=== PATIENT | male | born 1980 | race Caucasian/White ===

== ENCOUNTER → 2016-05-24 | Outpatient (CLI) | payer MEDICAID | LOC: MW.RT 20:57 | DX: G47.30 Sleep apnea, unspecified (principal) | CPT/HCPCS: 95811 ==

== ENCOUNTER 2016-11-11 08:16 | Emergency (ER) | payer SELFPAY ==
[2016-11-11] MEDS ORDERED: cefTRIAXone 1,000 MG in Lidocaine 1% 4 ML IM ONE (08:36)
--- NOTE | 2016-11-11 08:40 | EDM.PDOC ---
ED HPI GENERAL MEDICAL PROBLEM - General Chief Complaint: General Stated Complaint: TOOTHACHE Time Seen by Provider: 11/11/16 08:37 Source of Information: Reports: Patient - History of Present Illness INITIAL COMMENTS - FREE TEXT/NARRATIVE: HISTORY AND PHYSICAL: History of present illness: Patient has pain and swelling 8 out of 10 right rear molar consistent with early abscess formation, patient has failed [id number] symptomatic treatments with ibuprofen and Tylenol and other home remedies. No fever nausea vomiting chills sweats Review of systems: As per history of present illness and below otherwise all systems reviewed and negative. Past medical history: As per history of present illness and as reviewed below otherwise noncontributory. Surgical history: As per history of present illness and as reviewed below otherwise noncontributory. Social history: No reported history of drug or alcohol abuse. Family history: As per history of present illness and as reviewed below otherwise noncontributory. Physical exam: HEENT: Atraumatic, normocephalic, pupils reactive, negative for conjunctival pallor or scleral icterus, mucous membranes moist, throat clear, neck supple, nontender, trachea midline. Swelling along right gumline consistent with early abscess tenderness appreciated no significant for obvious drainage at this point Lungs: Clear to auscultation, breath sounds equal bilaterally, chest nontender. Heart: S1S2, regular, negative for clicks, rubs, or JVD. Abdomen: Soft, nondistended, nontender. Negative for masses or hepatosplenomegaly. Negative for costovertebral tenderness. Pelvis: Stable nontender. Genitourinary: Deferred. Rectal: Deferred. Extremities: Atraumatic, negative for cords or calf pain. Neurovascular unremarkable. Neuro: Awake, alert, oriented. Cranial nerves II through XII unremarkable. Cerebellum unremarkable. Motor and sensory unremarkable throughout. Exam nonfocal. Diagnostics: [] Therapeutics: []1 g Rocephin IM Augmentin 875 per 125 by mouth twice a day #20 no refill [facility] [place] No. 10 07/26/24 one by mouth every 6 when necessary Follow-up dentist ELIZABETH Impression: []Dental pain with early abscess formation Definitive disposition and diagnosis as appropriate pending reevaluation and review of above. - Related Data Allergies Allergy/AdvReac Type Severity Reaction Status Date / Time No Known Allergies Allergy Verified 11/11/16 08:23 Home Meds: Home Meds . [No Known Home Meds] 02/12/14 [History] Past Medical History - Past Health History Medical/Surgical History: Denies Medical/Surgical History Social & Family History - Family History Family Medical History: Noncontributory - Tobacco Use Smoking Status *Q: Current Every Day Smoker Years of Tobacco use: 20 Packs/Tins Daily: 1.5 Used Tobacco, but Quit: No - Caffeine Use Caffeine Use: Reports: Coffee, Energy Drinks, Soda, Tea - Alcohol Use Days Per Week of Alcohol Use: 0 - Recreational Drug Use Recreational Drug Use: No ED ROS GENERAL - Review of Systems Review Of Systems: ROS reveals no pertinent complaints other than HPI. ED EXAM, GENERAL - Physical Exam Exam: See Below Course - Vital Signs Last Recorded V/S: Last Vital Signs Temp 36.3 C 11/11/16 08:24 Pulse 89 11/11/16 08:24 Resp 16 11/11/16 08:24 BP 136/85 11/11/16 08:24 Pulse Ox 94 L 11/11/16 08:24 - Orders/Labs/Meds Meds: Medications Discontinued Medications Generic Name Dose Route Start Last Admin Trade Name Rinkuq PRN Reason Stop Dose Admin Ceftriaxone Sodium 1,000 mg/ 4 mls @ 4 mls/sec 11/11/16 08:36 Lidocaine HCl IM 11/11/16 08:37 ONETIME ONE Departure - Departure Time of Disposition: 08:39 Disposition: Home, Self-Care 01 Condition: Good Clinical Impression: Pain, dental, Dental abscess - Discharge Information Forms: ED Department Discharge Additional Instructions: Medication as prescribed Return if symptoms persist or worsen or fever nausea vomiting chills sweats despite antibiotics Follow-up with dentist as soon as possible The following information is given to patients seen in the emergency department who are being discharged to home. This information is to outline your options for follow-up care. We provide all patients seen in our emergency department with a follow-up referral. The need for follow-up, as well as the timing and circumstances, are variable depending upon the specifics of your emergency department visit. If you don't have a primary care physician on staff, we will provide you with a referral. We always advise you to contact your personal physician following an emergency department visit to inform them of the circumstance of the visit and for follow-up with them and/or the need for any referrals to a consulting specialist. The emergency department will also refer you to a specialist when appropriate. This referral assures that you have the opportunity for follow-up care with a specialist. All of these measure are taken in an effort to provide you with optimal care, which includes your follow-up. Under all circumstances we always encourage you to contact your private physician who remains a resource for coordinating your care. When calling for follow-up care, please make the office aware that this follow-up is from your recent emergency room visit. If for any reason you are refused follow-up, please contact the [facility] emergency department at and asked to speak to the emergency department charge nurse.
[2016-11-11 08:55] VITALS: BP 136/85
== END 2016-11-11 09:05 | disposition home or self-care (01) ==
LOC: MW.ED 08:16
DX: K04.7 Periapical abscess without sinus (principal); F17.210 Nicotine dependence, cigarettes, uncomplicated
CPT/HCPCS: 96372; 99282; J0696

== ENCOUNTER 2021-03-17 08:39 | Emergency (ER) | payer SELFPAY ==
--- NOTE | 2021-03-17 08:42 | EDM.PDOC ---
ED HPI GENERAL MEDICAL PROBLEM - General Stated Complaint: Q TIP STUCK IN EAR Time Seen by Provider: 03/17/21 08:41 Source of Information: Reports: Patient History Limitations: Reports: No Limitations - History of Present Illness INITIAL COMMENTS - FREE TEXT/NARRATIVE: 40M presents for Q-tip stuck in ear. Happened a couple of days ago and patient has been unable to get it out. He tried rinsing with water to no avail. Notes decreased hearing in that side. - Related Data Allergies Allergy/AdvReac Type Severity Reaction Status Date / Time No Known Allergies Allergy Verified 03/17/21 08:44 Home Meds: Home Meds Carbamide Peroxide [Debrox 6.5% Otic Soln] 4 drop OT TID #1 bottle 03/17/21 [Rx] Ofloxacin 4 drop OT TID 7 Days #1 bottle 03/17/21 [Rx] Past Medical History - Past Health History Medical/Surgical History: Denies Medical/Surgical History Social & Family History - Family History Family Medical History: No Pertinent Family History - Caffeine Use Caffeine Use: Reports: Coffee, Energy Drinks, Soda, Tea ED ROS GENERAL - Review of Systems Review Of Systems: Comprehensive ROS is negative, except as noted in HPI. ED EXAM, GENERAL - Physical Exam Exam: See Below Exam Limited By: No Limitations General Appearance: Alert, WD/WN, No Apparent Distress Ears: Hearing Grossly Normal, Other (large amount of wax-cotton stuck in L EAC, TM not visible ) Throat/Mouth: Normal Voice, No Airway Compromise Head: Atraumatic, Normocephalic Respiratory/Chest: No Respiratory Distress, Lungs Clear, Normal Breath Sounds, No Accessory Muscle Use Cardiovascular: Normal Peripheral Pulses, Regular Rate, Rhythm Extremities: Normal Inspection Neurological: Alert, Normal Cognition, Normal Gait Psychiatric: Normal Affect, Normal Mood Skin Exam: Warm, Dry, Intact, Normal Color Course - Vital Signs Last Recorded V/S: Last Vital Signs Temp 96.5 F L 03/17/21 08:46 Pulse 90 03/17/21 08:46 Resp 17 03/17/21 08:46 BP 144/90 H 03/17/21 08:46 Pulse Ox 95 03/17/21 08:46 - Re-Assessments/Exams Free Text/Narrative Re-Assessment/Exam: 03/17/21 09:21 The foreign body was mostly removed using alligator forceps. There was still a piece of foreign body remaining so it was rinsed with hydrogen peroxide/saline solution several times and alligator forceps were again used to remove several pieces. There was iatrogenic damage to the external auditory canal with a small amount of bleeding and erythema to the EAC. Most of the foreign body was able to be removed, however, there is a small piece of what appears to be dried earwax perhaps with some cotton on it stuck to the 12 o'clock position of the EAC but I am unable to remove. Will discharge patient with Debrox drops and ofloxacin antibiotic drops. He will use the Debrox drops 3 times a day and then 20 or 30 minutes later use the biotic drops. I recommend that if foreign body is not completely removed after a couple of days of using this regimen he will either follow-up with the ENT physician or come back to the emergency department for reassessment as the foreign body may be easier to remove at that point if it is loosened up. He understands and agrees with plan. Departure - Departure Time of Disposition: 09:19 Disposition: Home, Self-Care 01 Condition: Good Clinical Impression: Foreign body of ear, left Qualifiers: Encounter type: initial encounter Qualified Code(s): T16.2XXA - Foreign body in left ear, initial encounter - Discharge Information Prescriptions: Carbamide Peroxide [Debrox 6.5% Otic Soln] 4 drop OT TID #1 bottle Ofloxacin 4 drop OT TID 7 Days #1 bottle Instructions: Ear Foreign Body Additional Instructions: I sent prescriptions to [facility] located in the [employer] [facility]. Below is referral to ENT physician if the drops don't work to get rid of that last little piece of cotton-ear wax hybrid. He's located in [facility]. If despite using the drops after 3-4 days and if you're unable to get in with the ENT you still have that sensation of something stuck in there, come back and it should be loosened up enough that we can more easily get it out. Dr. Ronny Mas [facility], [address] [place] [address], [place] [id number] The following information is given to patients seen in the emergency department who are being discharged to home. This information is to outline your options for follow-up care. We provide all patients seen in our emergency department with a follow-up referral. The need for follow-up, as well as the timing and circumstances, are variable depending upon the specifics of your emergency department visit. If you don't have a primary care physician on staff, we will provide you with a referral. We always advise you to contact your personal physician following an emergency department visit to inform them of the circumstance of the visit and for follow-up with them and/or the need for any referrals to a consulting specialist. The emergency department will also refer you to a specialist when appropriate. This referral assures that you have the opportunity for follow-up care with a specialist. All of these measure are taken in an effort to provide you with optimal care, which includes your follow-up. Under all circumstances we always encourage you to contact your private physician who remains a resource for coordinating your care. When calling for follow-up care, please make the office aware that this follow-up is from your recent emergency room visit. If for any reason you are refused follow-up, please contact the [facility] Emergency Department at and asked to speak to the emergency department charge nurse. Please follow up with your primary care physician. If you do not have a primary care physician, see below: [facility] [address] [place] [id number] [facility] [address] [place] [address] [facility] [address] [place] [id number] Sepsis Event Note (ED) - Focused Exam Vital Signs: Vital Signs Temp Pulse Resp BP Pulse Ox 03/17/21 08:46 96.5 F L 90 17 144/90 H 95
[2021-03-17 09:40] VITALS: BP 142/94; PULSE 89
== END 2021-03-17 09:33 | disposition home or self-care (01) ==
LOC: MW.ED 08:39
DX: T16.2XXA Foreign body in left ear, initial encounter (principal)
CPT/HCPCS: 69200; 99282-25

== ENCOUNTER 2022-11-19 10:20 | Emergency (ER) | payer OTHER ==
[2022-11-19 11:03] VITALS: BP 139/85; PULSE 87
== END 2022-11-19 11:26 | disposition home or self-care (01) ==
LOC: MW.ED 10:20
DX: H61.23 Impacted cerumen, bilateral (principal); F17.210 Nicotine dependence, cigarettes, uncomplicated
CPT/HCPCS: 69210; 99282; 99283

== ENCOUNTER 2023-08-07 14:57 | Emergency (ER) | payer OTHER ==
[2023-08-07] MEDS: Acetaminophen/oxyCODONE 325-5 MG Tab PO ONE (15:47)
[2023-08-07 17:12] LABS: APPEARANCE,URINE CLOUDY; COLOR,URINE BROWN; GLUCOSE,URINE NEGATIVE (NEGATIVE); KETONES,URINE NEGATIVE (NEGATIVE); LEUKOCYTE ESTERASE,URINE TRACE (NEGATIVE); NITRITE,URINE POSITIVE (NEGATIVE); OCCULT BLOOD,URINE LARGE (NEGATIVE); PH,URINE 6.5 (5.0-8.0); PROTEIN,URINE 100 mg/dL (NEGATIVE)
[2023-08-07 17:37] LABS: BILIRUBIN,URINE MODERATE (NEGATIVE)
[2023-08-07 17:40] LABS: EPITHELIAL CELLS,URINE RARE (NONE-FEW); RBC,URINE TOO NUMEROUS TO CT (0-2/HPF)
[2023-08-07 17:41] LABS: BACTERIA,URINE FEW (NEGATIVE)
[2023-08-07] MEDS: Sodium Chloride 0.9% 1,000 ML IV ONE (18:49)
[2023-08-07 18:56] LABS: BASOPHILS ABSOLUTE AUTO 0.07 K/uL (0.00-0.20); BASOPHILS PERCENT AUTO 0.7 % (0.0-1.0); EOSINOPHILS PERCENT AUTO 2.8 % (0.0-6.0); HEMATOCRIT 46.4 % (42.0-52.0); HEMOGLOBIN 16.1 g/dL (14.0-18.0); IMMATURE GRAN ABSOLUTE AUTO 0.04 K/uL (0.00-0.05); IMMATURE GRAN PERCENT AUTO 0.4 % (0.0-0.4); LYMPHOCYTES ABSOLUTE AUTO 3.67 K/uL (1.00-4.80); LYMPHOCYTES PERCENT AUTO 34.4 % (24.0-44.0); MEAN CORPUSCULAR HEMOGLOBIN 30.8 pg (28.0-32.0); MEAN CORPUSCULAR HGB CONC 34.7 g/dL (32.0-36.0); MEAN CORPUSCULAR VOLUME 88.7 fL (83.0-99.0); MEAN PLATELET VOLUME 10.5 fL (9.4-12.4); MONOCYTES PERCENT AUTO 3.8 % (0.0-8.0); NEUTROPHILS ABSOLUTE AUTO 6.18 K/uL (1.80-7.70); NEUTROPHILS PERCENT AUTO 57.9 % (41.0-71.0); PLATELET COUNT,PLT 207 K/uL (150-400); RED BLOOD CELL COUNT 5.23 M/uL (4.52-5.90); WHITE BLOOD CELL COUNT,WBC 10.66 K/uL (3.9-11.3)
[2023-08-07 19:25] LABS: A/G RATIO 0.7 (0.9-1.6); BILIRUBIN TOTAL 0.3 mg/dL (0.2-1.0); CALCIUM 8.5 mg/dL (8.5-10.1); CARBON DIOXIDE,CO2 27.9 mmol/L (21.0-32.0); CREATININE 1.4 mg/dL (0.8-1.3); EST CRCL DRUG DOSING (CG) 74.7 mL/min; POTASSIUM,K 3.9 mmol/L (3.5-5.1); PROTEIN TOTAL,TP 7.4 g/dL (6.4-8.2)
[2023-08-07] MEDS: cefTRIAXone 1 GM in Sodium Chloride 0.9% 50 ML IV ONE (20:05)
[2023-08-07] MEDS: Tamsulosin 0.4 MG Cap.ER PO ONE (20:06)
[2023-08-07 20:39] VITALS: BP 137/93; PULSE 76
== END 2023-08-07 20:41 | disposition home or self-care (01) ==
LOC: MW.ED 14:57
DX: S16.1XXA Strain of muscle, fascia and tendon at neck level, initial encounter (principal); N20.0 Calculus of kidney; N39.0 Urinary tract infection, site not specified; F17.210 Nicotine dependence, cigarettes, uncomplicated; Z79.899 Other long term (current) drug therapy; Z75.8 Other problems related to medical facilities and other health care; V48.5XXA Car driver injured in noncollision transport accident in traffic accident, initial encounter; Y93.89 Activity, other specified
CPT/HCPCS: 36415; 74176; 80053; 81001; 81003; 82550; 85025; 87086; 96365; 99284; A9270; J0696; J3490; J7030; 99283

== ENCOUNTER 2023-08-24 16:11 | Emergency (ER) | payer OTHER ==
[2023-08-24 17:02] LABS: BASOPHILS ABSOLUTE AUTO 0.08 K/uL (0.00-0.20); BASOPHILS PERCENT AUTO 0.7 % (0.0-1.0); EOSINOPHILS ABSOLUTE AUTO 0.33 K/uL (0.00-0.45); EOSINOPHILS PERCENT AUTO 2.7 % (0.0-6.0); HEMATOCRIT 48.3 % (42.0-52.0); HEMOGLOBIN 16.7 g/dL (14.0-18.0); IMMATURE GRAN ABSOLUTE AUTO 0.04 K/uL (0.00-0.05); IMMATURE GRAN PERCENT AUTO 0.3 % (0.0-0.4); LYMPHOCYTES ABSOLUTE AUTO 4.43 K/uL (1.00-4.80); LYMPHOCYTES PERCENT AUTO 36.7 % (24.0-44.0); MEAN CORPUSCULAR HEMOGLOBIN 29.5 pg (28.0-32.0); MEAN CORPUSCULAR HGB CONC 34.6 g/dL (32.0-36.0); MEAN CORPUSCULAR VOLUME 85.2 fL (83.0-99.0); MONOCYTES ABSOLUTE AUTO 0.83 K/uL (0.00-0.80); MONOCYTES PERCENT AUTO 6.9 % (0.0-8.0); NEUTROPHILS ABSOLUTE AUTO 6.36 K/uL (1.80-7.70); NEUTROPHILS PERCENT AUTO 52.7 % (41.0-71.0); PLATELET COUNT,PLT 258 K/uL (150-400); RED BLOOD CELL COUNT 5.67 M/uL (4.52-5.90); WHITE BLOOD CELL COUNT,WBC 12.07 K/uL (3.9-11.3)
[2023-08-24 17:06] LABS: CALCIUM 8.6 mg/dL (8.5-10.1); CARBON DIOXIDE,CO2 25.1 mmol/L (21.0-32.0); CREATININE 1.8 mg/dL (0.8-1.3); EST CRCL DRUG DOSING (CG) 58.1 mL/min; POTASSIUM,K 4.2 mmol/L (3.5-5.1)
[2023-08-24] MEDS: Sodium Chloride 0.9% 1,000 ML IV ONE (17:19)
[2023-08-24] MEDS: Ketorolac 30 MG/ML SDV IVPUSH ONE (17:19)
[2023-08-24] MEDS ORDERED: Naloxone 0.4 MG/ML SDV IVPUSH PRN (17:25)
[2023-08-24] MEDS: Morphine 4 MG/ML Syringe IVPUSH PRN (17:49)
[2023-08-24 18:13] LABS: APPEARANCE,URINE CLEAR; BILIRUBIN,URINE NEGATIVE (NEGATIVE); COLOR,URINE YELLOW; GLUCOSE,URINE NEGATIVE (NEGATIVE); KETONES,URINE NEGATIVE (NEGATIVE); LEUKOCYTE ESTERASE,URINE NEGATIVE (NEGATIVE); NITRITE,URINE NEGATIVE (NEGATIVE); OCCULT BLOOD,URINE LARGE (NEGATIVE); PROTEIN,URINE NEGATIVE (NEGATIVE); UROBILINOGEN,URINE 0.2 EU/dL (<2.0)
[2023-08-24 18:26] LABS: BACTERIA,URINE RARE (NEGATIVE); EPITHELIAL CELLS,URINE RARE (NONE-FEW); RBC,URINE 25-30 (0-2/HPF); WBC,URINE 0-2 (0-5/HPF)
[2023-08-24 19:27] VITALS: BP 173/97; PULSE 82
== END 2023-08-24 19:28 | disposition home or self-care (01) ==
LOC: MW.ED 16:11
DX: N20.0 Calculus of kidney (principal); F17.210 Nicotine dependence, cigarettes, uncomplicated; Z75.8 Other problems related to medical facilities and other health care; Z79.899 Other long term (current) drug therapy; Z86.16 Personal history of COVID-19
CPT/HCPCS: 36415; 80048; 81001; 85025; 87086; 96374; 96375; 99284; J1885; J2270; J7030